=== PATIENT | male | born 1945 | race Caucasian/White ===

== ENCOUNTER 2019-08-20 01:07 | Outpatient (CLI) | payer MEDICARE, OTHER, SELFPAY ==
[2019-08-20] MEDS: Normal Saline - Diluent 50 ML VIAL IV (13:31)
[2019-08-20] MEDS: Omnipaque 350 MG/ML 100 ML BTL IJ (13:32)
--- NOTE | 2019-08-20 13:50 | DI.CT_ITS ---
EXAM: CT ABDOMEN PELVIS CTA CLINICAL HISTORY: 3 MONTH F/U AAA, I71.4, s/P EVAR, EVALUATE SIZE, ANATOMY AND CHECK FOR ENDOLEAK O R MIGRATION TECHNIQUE: Imaging Protocol: Axial CT angiography was performed with multi-slice acquisition and m ulti-planar and/or 3D reconstructions. CONTRAST MATERIAL: Intravenous: Omnipaque 350 Contrast volume:100 ml Oral: no COMPARISON: CT ANGIO ABDOMEN PELVIS from 05/20/2019 FINDINGS: There has been no change in location of the aortobiiliac artery stent. The proximal abdominal aortic aneurysm measures 7.6 cm AP x 7.4 cm transverse. This compares with 7.4 cm AP x 7.1 cm transverse o n the prior examination. The lower component of the abdominal aortic aneurysm measures 7.0 cm transv erse by 6.1 cm AP. This compares with 6.9 cm transverse by 5.8 cm AP on the prior examination. 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 This compares with 7.4 cm A P x 5.3 cm transverse on the prior examination. The type 2 endoleaks previously noted are present an d do not appear to have worsened on the current examination. Soft Tissues:Unremarkable Lung bases:No acute infiltrates. Liver: Diffuse decreased attenuation consistent with fatty infiltration. No measurable mass. Gallbladder and biliary tract: Cholelithiasis. No biliary ductal dilatation. Pancreas: Normal density, no abnormal calcifications or inflammatory process. Spleen: Normal. Calcified granuloma. Kidneys: Normal size, contour and axis. Nonobstructing upper pole right renal calculus. No masses se en. Bilateral renal cysts. Adrenal glands: No masses seen. Bladder: Symmetric distention, no gross wall thickening. Bowel: No obstruction or bowel wall thickening. Mid sigmoid anastomosis. Normal appendix is visualiz ed. There appears to be a small bowel anastomosis in the right lower quadrant. Reproductive organs: Prostatic enlargement. Peritoneal cavity: No ascites, collection or mesenteric inflammatory response. Bones: Degenerative changes are seen in the spine. Lymph nodes: Within normal limits. IMPRESSION: There is again seen enlarging abdominal aortic aneurysm. There are again seen associated type 2 endo leaks. DATA REPOSITORY: All CT scans at this facility are submitted to the National Radiology Data Registry (NRDR) Dose Index Registry (DIR) with the [employer] ([employer]). RADIATION OPTIMIZATION: All CT scans at this facility use at least one of these dose optimization te chniques: automated exposure control; mA and/or kV adjustment per patient size (includes targeted exa ms where dose is matched to clinical indication); or iterative reconstruction.
== END 2019-08-20 01:27 ==
PROVIDERS: PCP Family Medicine; Visit Provider Surgery Vascular Surgery
DX: I71.4 Abdominal aortic aneurysm, without rupture (principal); K76.0 Fatty (change of) liver, not elsewhere classified; K80.20 Calculus of gallbladder without cholecystitis without obstruction
CPT/HCPCS: 74174; J3490

== ENCOUNTER 2019-10-02 08:13 | Outpatient (CLI) | payer MEDICARE, OTHER, SELFPAY ==
[2019-10-03 12:08] LABS: COVID-19 RT-PCR UVMMC Result Negative (Negative)
== END 2019-10-02 08:33 ==
PROVIDERS: PCP Family Medicine; Visit Provider Radiology Vascular & Interventional Radiology
DX: Z03.818 Encounter for observation for suspected exposure to other biological agents ruled out (principal)
CPT/HCPCS: U0003

== ENCOUNTER 2019-11-13 08:20 | Outpatient (CLI) | payer MEDICARE, OTHER, SELFPAY ==
[2019-11-15 12:24] LABS: COVID-19 RT-PCR Result NEGATIVE (Negative)
== END 2019-11-13 08:40 ==
PROVIDERS: PCP Family Medicine; Visit Provider Radiologic Technologist Vascular-Interventional Technology
DX: Z01.818 Encounter for other preprocedural examination (principal); I71.4 Abdominal aortic aneurysm, without rupture; Z03.818 Encounter for observation for suspected exposure to other biological agents ruled out
CPT/HCPCS: U0003

== ENCOUNTER 2019-12-07 09:27 | Outpatient (CLI) | payer MEDICARE, OTHER, SELFPAY ==
[2019-12-08 20:50] LABS: COVID-19 RT-PCR Result NEGATIVE (Negative)
== END 2019-12-07 09:47 ==
PROVIDERS: PCP Family Medicine; Visit Provider Radiology Vascular & Interventional Radiology
DX: Z11.59 Encounter for screening for other viral diseases (principal); Z01.818 Encounter for other preprocedural examination
CPT/HCPCS: U0003

== ENCOUNTER 2021-05-26 01:37 | Outpatient (CLI) | payer MEDICARE, OTHER, SELFPAY ==
[2021-05-26 12:25] LABS: Source Nasal/Nares
[2021-05-26 15:52] LABS: COVID-19 PCR Negative (Negative)
== END 2021-05-26 01:38 | disposition home or self-care (01) ==
LOC: LBO 01:37
PROVIDERS: PCP Family Medicine; Visit Provider Radiology Vascular & Interventional Radiology
DX: Z20.822 Contact with and (suspected) exposure to COVID-19 (principal)
CPT/HCPCS: 87635